=== PATIENT | male | born 1975 | race African-American/Black ===

== ENCOUNTER 2016-08-31 09:31 | Emergency (ER) | payer OTHER ==
--- NOTE | ~2016-08-31 | CT71 ---
[facility] A Service of [facility] RADIOLOGY TEXT RESULTS PATIENT: ZANDER CRUZ LOCATION: [facility] : 79 UNIT #: [id number] AGE: [address]: Socrates Loza MD SEX: M ORDER DR: [id number] [facility] [address] [place], [place] [address] [id number] E MR#: [id number] Acc #: [id number] NAME: ZANDER CRUZ : 1975 SEX: M STUDY DATE/TIME: 08/31/2016 11:18 UNIT: SOL ROOM: STUDY DESCRIPTION: CT Head Wo Contrast Attending Physician: Socrates Loza M.D. Ordering Physician: Socrates Loza M.D. Primary Care Physician: Primary Care Physician No MEDICAL IMAGING REPORT This report is preliminary unless electronic signature is present EXAM Noncontrast head CT. HISTORY Dizziness and bilateral upper extremity tingling since 08/30/[address] 08/03/[address] exam was performed with one or more of the following radiation dose reduction techniques: automatic control, adjustment of mA and/or kV according to patient size, and iterative reconstruction. FINDINGS Axial noncontrast imaging of the brain demonstrates the brain parenchyma to be normal. No evidence of mass, mass effect or midline shift. No hemorrhage or abnormal extraaxial fluid collections. Chronic left mastoid air cell fluid, probably represents chronic effusion. Left maxillary sinus mucous retention cyst. This appears increased from the 2015 study. Small amount of left ethmoid sinus mucosal disease. IMPRESSION 1. No acute intracranial abnormality identified. 2. Chronic left mastoid effusion. 3. 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 Dictated by... Jethro Lee M.D. THIS IS AN ELECTRONICALLY VERIFIED REPORT Jethro Lee M.D. at 09/02/2016 10:07 PM [facility] A Service [facility] RADIOLOGY TEXT RESULTS PATIENT: ZANDER CRUZ LOCATION: [facility] : 79 UNIT #: [id number] AGE: [address]: Socrates Loza MD SEX: M ORDER DR: BRY/ward TD: 08/31/2016 12:24 JOB #: [id number] MEDICAL IMAGING REPORT Page 1 of 1 COPY
--- NOTE | ~2016-08-31 | EKG ---
PATIENT: ZANDER CRUZ UNIT #: [id number] Ventricular Rate: 81 BPM Atrial Rate: 81 BPM P-R Interval: 178 ms QRS Duration: 94 ms Q-T Interval: 358 ms QTC Calculation(Bezet): 415 ms P [place]: 40 degrees Calculated R [place]: 36 degrees Calculated T [place]: 48 degrees Diagnosis Line: Normal sinus rhythm Diagnosis Line: Normal ECG Diagnosis Line: No previous ECGs available Diagnosis Line: Confirmed by LUISANA LOMBARDI MD ([id number]) on 09/03/2016 Diagnosis Line: 3:57:31 PM INTERPRETING MD: HARJIT GREER
--- NOTE | ~2016-08-31 | CT17 ---
[facility] A Service of [facility] & [facility] RADIOLOGY TEXT RESULTS PATIENT: ZANDER CRUZ LOCATION: [facility] : 79 UNIT #: [id number] AGE: [address]: Socrates Loza MD SEX: M ORDER DR: [id number] [facility] [address] [place], [place] [address] [id number] E MR#: [id number] Acc #: [id number] NAME: ZANDER CRUZ : 1975 SEX: M STUDY DATE/TIME: 08/31/2016 11:31 UNIT: [facility] ROOM: STUDY DESCRIPTION: CT Angio Head Attending Physician: Socrates Loza M.D. Ordering Physician: Socrates Loza M.D. Primary Care Physician: Primary Care Physician No MEDICAL IMAGING REPORT This report is preliminary unless electronic signature is present EXAM CT scan of the head and neck with angiographic reconstructions. INDICATION Dizziness and bilateral upper extremity tingling since yesterday. TECHNIQUE The patient was given 100 mL of Isovue-370 and spiral imaging was performed through the aortic arch through the brain. 3-D reconstructions of the arterial structures were generated and NASCET criteria was utilized. FINDINGS The lung apices are clear. The thyroid gland, submandibular glands, and parotid glands are normal in appearance. The study is very grainy because of the patient's large size. No neck masses or adenopathy are identified. The ventricles and subarachnoid spaces are normal. There are no masses or extraaxial fluid collections. FINDINGS VASCULAR FINDINGS: The aortic arch is normal in size. The great vessels are all patent. The vertebral arteries arise from the subclavian arteries bilaterally and the right one is slightly larger than the right. They unite to form the basilar artery. The right common carotid artery, carotid bifurcation, and internal carotid artery are normal. The left common carotid artery, carotid bifurcation, and internal carotid artery are normal. The basilar and posterior cerebral arteries are normal. The middle and anterior cerebral arteries are normal. IMPRESSION Normal CTA of the head and neck. Images of the lower neck are degraded by the patient's body size causing the images to be very grainy. STS. [facility] A Service of [facility] & [facility] RADIOLOGY TEXT RESULTS PATIENT: ZANDER CRUZ [id number] : [birth year] UNIT #: [id number] AGE: [address]: Socrates Loza MD SEX: M ORDER DR: Dictated by... Jerry Polanco M.D. THIS IS AN ELECTRONICALLY VERIFIED REPORT Jerry Polanco M.D. at 09/01/2016 3:28 PM DEBORA/evelin TD: 08/31/2016 14:10 JOB #: [id number] MEDICAL IMAGING REPORT Page 1 of 1 COPY
--- NOTE | ~2016-08-31 | CT23 ---
[facility] A Service of [facility] & [facility] RADIOLOGY TEXT RESULTS PATIENT: ZANDER CRUZ LOCATION: [facility] : 79 UNIT #: [id number] AGE: [address]: Socrates Loza MD SEX: M ORDER DR: [id number] [facility] [address] [place] [address] [place], [place] [address] [id number] E MR#: [id number] Acc #: [id number] NAME: ZANDER CRUZ : 1975 SEX: M STUDY DATE/TIME: 08/31/2016 11:31 UNIT: [facility] ROOM: STUDY DESCRIPTION: CT Angio Neck Attending Physician: Socrates Loza M.D. Ordering Physician: Socrates Loza M.D. Primary Care Physician: Primary Care Physician No MEDICAL IMAGING REPORT This report is preliminary unless electronic signature is present EXAM CT angio neck. HISTORY Dizziness and bilateral upper extremity tingling since yesterday FINDINGS Please see CT angio head for results. Dictated by... Jerry Polanco M.D. THIS IS AN ELECTRONICALLY VERIFIED REPORT Jerry Polanco M.D. at 09/01/2016 3:28 PM DEBORA/evelin TD: 08/31/2016 14:12 JOB #: [id number] MEDICAL IMAGING REPORT Page 1 of 1 COPY
--- NOTE | ~2016-08-31 | CR72 ---
[facility] A Service of [facility] RADIOLOGY TEXT RESULTS PATIENT: ZANDER CRUZ LOCATION: [facility] : 79 UNIT #: [id number] AGE: [address]: Socrates Loza MD SEX: M ORDER DR: [id number] [place] [id number] [facility]. [place], [place] [address] [id number] E MR#: [id number] Acc #: [id number] NAME: ZANDER CRUZ. : 1975 SEX: M STUDY DATE/TIME: 08/31/2016 8:55 UNIT: SOL ROOM: STUDY DESCRIPTION: CR Chest Single View Portable Attending Physician: Socrates Loza M.D. Ordering Physician: Socrates Loza M.D. Primary Care Physician: Primary Care Physician No MEDICAL IMAGING REPORT This report is preliminary unless electronic signature is present EXAM Frontal chest, 08/31/2016 INDICATION 41-year-old male with dizziness with standing. Shortness of air since yesterday. Diabetes, tobacco abuse 20 years. TECHNIQUE Frontal chest was performed COMPARISON 12/07/2011 FINDINGS Cardiac silhouette within normal limits. Vascularity unremarkable. Lung volumes are low and there is bronchovascular crowding. No pneumothorax. Pleural thickening to a mild degree and the lung apices unchanged. Tiny calcified granulomas. IMPRESSION Low lung volumes and chronic lung changes. No definite superimposed active disease or significant change. Dictated by... Chapincito Martin M.D. THIS IS AN ELECTRONICALLY VERIFIED REPORT Chapincito Martin M.D. at 08/31/2016 5:31 PM Lena TD: 08/31/2016 09:39 JOB #: [id number] [facility] A Service [facility] RADIOLOGY TEXT RESULTS PATIENT: ZANDER CRUZ LOCATION: [facility] : 79 UNIT #: [id number] AGE: [address]: Socrates Loza MD SEX: M ORDER DR: MEDICAL IMAGING REPORT Page 1 of 1 COPY
[2016-08-31 09:29] LABS: URINE SOURCE CLEAN CATCH
[~2016-08-31 09:31] MED LIST: ACETAMINOPHEN PO; AUGMENTIN PO; DAKIN'S MODIF1000 ML EXT; FLEXERIL10 MG PO; HUMULIN 70/30 V10 ML SUBQ; HYDROCODON-ACE1 EAC7 PO; KETOPROFEN PO; METFORMIN; MOTRIN400 MG PO; ORUDIS75 M1 PO; PERCOCET 5-3251 TAB PO
[2016-08-31 09:34] LABS: POC - CKMB 2.1 ng/mL (0.0-7.9); POC - TROPONIN <0.05 ng/mL (<=0.05)
[2016-08-31 09:34] LABS: URINE APPEARANCE CLEAR; URINE BILIRUBIN NEG (NEG); URINE BLOOD NEG (NEG); URINE COLOR YELLOW; URINE GLUCOSE NEG (NEG); URINE KETONE NEG (NEG); URINE LEUKOCYTE ESTERASE NEG (NEG); URINE NITRATE NEG (NEG); URINE PH 6.5 (5-8); URINE PROTEIN NEG (NEG); URINE SPECIFIC GRAVITY 1.004 (1.003-1.035); URINE UROBILINOGEN 0.2 MG/DL (NEG)
[2016-08-31 09:37] LABS: BASOPHIL# 0.1 X10e3 (0-0.3); BASOPHIL% 0.7 % (0-2.5); CULTURE INDICATED? NO; EOSINOPHIL# 0.1 X10e3 (0-0.7); EOSINOPHIL% 1.3 % (0.0-7.0); HEMATOCRIT 46.4 % (38.0-50.0); HEMOGLOBIN 14.9 gm/dL (13.0-16.0); LYMPHOCYTE# 1.9 X10e3 (1.0-3.5); LYMPHOCYTE% 24.1 % (17.0-45.0); MEAN CORPUSCULAR HEMOGLOBIN 28.3 PG (28-34); MEAN CORPUSCULAR HGB CONC 32.1 g/dL (30-36); MEAN PLATELET VOLUME 8.7 FL (6.5-11.5); MONOCYTE# 0.6 X10e3 (0-1.0); NEUTROPHIL# 5.4 X10e3 (1.5-7.1); NEUTROPHIL% 66.9 % (40-75); PLATELET COUNT 206 X10e3 (140-420); RED BLOOD COUNT 5.28 X10e (3.90-5.60); RED CELL DISTRIBUTION WIDTH 13.4 % (11.0-15.5)
[2016-08-31 09:43] LABS: DIFF IND NO
[2016-08-31 09:51] LABS: AMPHETAMINE NEG (NEG); BARBITURATES NEG (NEG); BENZODIAZEPINES NEG (NEG); COCAINE NEG (NEG); MARIJUANA NEG (NEG); OPIATES NEG (NEG); TRICYCLIC ANTIDEPRESSANTS NEG (NEG); U METHADONE NEG (NEG)
[2016-08-31 10:17] LABS: BILIRUBIN, DIRECT 0.1 mg/dL (0.0-0.2); BILIRUBIN,TOTAL 0.1 mg/dL (0.2-2.0); BUN/CREATININE RATIO 12.72; CALCIUM SERUM 9.2 mg/dL (8.4-10.2); CREATININE SERUM 1.1 mg/dL (0.6-1.4); GLOM FILT RATE Estimated 97.5 mL/min (>60); POTASSIUM 4.4 mmol/L (3.5-5.1); PROTEIN TOTAL SERUM 7.6 g/dL (6.0-8.3)
[2016-08-31 12:50] LABS: POC - CKMB 2.5 ng/mL (0.0-7.9); POC - TROPONIN <0.05 ng/mL (<=0.05)
== END 2016-08-31 13:18 | disposition home or self-care (01) ==
LOC: CED 09:31
PROVIDERS: Emergency Medicine
DX: S09.90XA Unspecified injury of head, initial encounter (principal); S13.4XXA Sprain of ligaments of cervical spine, initial encounter; S23.3XXA Sprain of ligaments of thoracic spine, initial encounter; S33.5XXA Sprain of ligaments of lumbar spine, initial encounter; F17.200 Nicotine dependence, unspecified, uncomplicated; K21.9 Gastro-esophageal reflux disease without esophagitis; V49.00XA Driver injured in collision with unspecified motor vehicles in nontraffic accident, initial encounter
CPT/HCPCS: 36415; 70450; 70496; 70498; 71010; 80048; 80076; 80307; 81003; 82553; 82947; 84484; 85025; 93005; 96360; 99284; G0480; Q9967